=== PATIENT | female | born 1990 | race Caucasian/White ===

== ENCOUNTER 2017-07-22 15:01 | Emergency (ER) | payer SELFPAY ==
[~2017-07-22] VITALS: Ht 154.9 cm; Wt 90.0 kg
[2017-07-22 15:28] VITALS: BP 128/80
== END 2017-07-22 18:40 | disposition left against medical advice (07) ==
LOC: EME 15:01
DX: K08.89 Other specified disorders of teeth and supporting structures (principal); R22.0 Localized swelling, mass and lump, head; K03.81 Cracked tooth; Z53.21 Procedure and treatment not carried out due to patient leaving prior to being seen by health care provider

== ENCOUNTER 2018-03-19 13:48 | Emergency (ER) | payer OTHER ==
[~2018-03-19] VITALS: Ht 154.9 cm; Wt 88.6 kg
[2018-03-19] MEDS ORDERED: TYLENOL WITH C1 EACH PO (14:28)
[2018-03-19] MEDS ORDERED: MOTRIN600 MG PO (14:28)
[2018-03-19] MEDS ORDERED: CLEOCIN300 MG PO (14:28)
[2018-03-19 15:18] VITALS: BP 114/82
== END 2018-03-19 15:19 | disposition home or self-care (01) ==
LOC: EME 13:48
DX: K08.89 Other specified disorders of teeth and supporting structures (principal); R22.0 Localized swelling, mass and lump, head; Z88.0 Allergy status to penicillin; F17.200 Nicotine dependence, unspecified, uncomplicated